=== PATIENT | male | born 1970 | race Caucasian/White ===

== ENCOUNTER 2020-07-26 00:18 | Outpatient (CLI) | payer OTHER, SELFPAY ==
[2020-07-26 20:45] LABS: SARS-CoV-2 RNA PCR Negative
== END 2020-07-26 00:19 | disposition home or self-care (01) ==
LOC: ANHCOVIDDT 00:18
PROVIDERS: PCP Family Medicine; Visit Provider Internal Medicine Gastroenterology
DX: Z01.818 Encounter for other preprocedural examination (principal); Z20.828 Contact with and (suspected) exposure to other viral communicable diseases
CPT/HCPCS: 87635; C9803; U0003

== ENCOUNTER 2020-07-29 00:46 | Day surgery (SDC) | payer OTHER, SELFPAY ==
[2020-07-21 11:26] VITALS: BMI 36.8
[2020-07-29 10:43] VITALS: BP 166/113; PULSE 79; RESP 17; TEMP 36.6; O2SAT 97; BMI 35.9
[2020-07-29] MEDS: LACTATED RINGERS 1,000 ML 150 ML IV CONT (10:58)
--- NOTE | 2020-07-29 11:38 | WPDANESEPPF ---
Anes - Initial Pre Proc Eval Procedure: Operation Date: 07/29/20 10:00 Proposed Procedures p Screening Colonoscopy - John Franklin MD Date/Time: 07/29/20 11:38 Surgeon: John Franklin MD Pre Op Diagnosis: Neoplasm Screening Patient Data Age: 49 Gender: M Height: 5 ft 8 in Weight: 107 kg Last Vital Signs Temp 97.9 F 07/29/20 10:43 Pulse 79 07/29/20 10:43 Resp 17 07/29/20 10:43 BP 166/113 H 07/29/20 10:43 Pulse Ox 97 07/29/20 10:43 Allergies Allergy/AdvReac Type Severity Reaction Status Date / Time Penicillins Allergy Intermediate Rash Verified 07/29/20 10:42 Home Medications Medication Instructions Recorded Confirmed Type No Home Medications 07/21/20 07/29/20 History Patient hx anesthesia problems: none Family hx anesthesia problems: none PMFSH Past Medical History Medical History (Updated 06/30/19 @ 10:32 by Harriett Barbosa MD) Family history of prostate cancer in father Prediabetes Recurrent herpes labialis Family History Family History (Updated 06/30/19 @ 10:03 by Anastasia Chahal) Father Malignant neoplasm of prostate Mother Family history of diabetes mellitus in first degree relative Grandparent Heart disease Social History Social History Smoking status: Never smoker Alcohol intake: current Drinks per week: 3 Alcohol use details: BEERS Substance use: never Substance use type: does not use Living arrangements: with family Spiritual care concerns: No Anes - Eval Final PreProcedure Day of Procedure 07/29/20 11:38 Patient weight: obese Heart: regular rate and rhythm Lungs: clear to auscultation Airway: Mallampati scale class II Neurological: alert and oriented Last oral intake: >/= 8 hours ASA classification: II Emergent: no Anesthetic plan: proceed Anesthesia type and monitoring: general GIVS and standard monitoring Informed Consent: The patient's anesthetic plan and its attendant risks and benefits were discussed with the patient/family/POA. Questions were solicited and answers provided to the satisfaction of the patient/family/POA.
--- NOTE | 2020-07-29 12:18 | WPDGICN ---
Assessment and Plan Assessment and plan (1) Encounter for screening colonoscopy: Code(s): Z12.11 - Encounter for screening for malignant neoplasm of colon Status: Acute Assessment and Plan: Patient presents today for screening colonoscopy because of age 49. He has appears to be at average risk for colon polyps. GI Consult Note Consult date/time: 07/29/20 12:18 HPI: Mickey Winters is a 49 year old male I am seen in the the absence of Dr Cuello today. patient presents for neoplasia screening. He has never had a colonoscopy previously. His current weight appetite bowel movements are normal. He has been in general good health. He denies weight loss or bleeding. Family history is noncontributory. Review of Systems Review of Systems: All systems reviewed & are unremarkable except as noted in HPI and below PMFSH Past Medical History Medical History (Updated 07/29/20 @ 12:20 by John Franklin MD) Family history of prostate cancer in father Prediabetes Recurrent herpes labialis Family History Family History (Updated 06/30/19 @ 10:03 by Anastasia Chahal) Father Malignant neoplasm of prostate Mother Family history of diabetes mellitus in first degree relative Grandparent Heart disease Social History Social History Smoking status: Never smoker Alcohol intake: current Drinks per week: 3 Alcohol use details: BEERS Substance use: never Substance use type: does not use Living arrangements: with family Spiritual care concerns: No Meds Home Medications and Allergies Home Medications Medication Instructions Recorded Confirmed Type No Home Medications 07/21/20 07/29/20 History Allergies Allergy/AdvReac Type Severity Reaction Status Date / Time Penicillins Allergy Intermediate Rash Verified 07/29/20 10:42 Vital Signs Vital Signs - 24 hr 07/29/20 10:43 Temperature 97.9 F Pulse Rate 79 Respiratory Rate 17 Blood Pressure 166/113 H Pulse Oximetry 97 Exam Narrative: Exam Narrative: Physical exam reveals patient to be alert. Vital signs stable. HEENT exam unremarkable. Lungs are clear to auscultation and percussion. Heart is without murmur or extra sounds. Abdominal exam bowel sounds are present soft nontender with no organomegaly. Digital external rectal exam normal.
[2020-07-29] MEDS: SIMETHICONE ORAL SUSPENSION 20 MG/0.3 ML 30 ML BOTTLE 0.6 ML IRRIGATION (13:29)
[2020-07-29 13:38] VITALS: BP 145/99; PULSE 87; RESP 17; O2SAT 94
[2020-07-29 13:48] VITALS: BP 132/93; PULSE 87; RESP 17; O2SAT 97
[2020-07-29 13:58] VITALS: BP 135/98; PULSE 85; RESP 17; O2SAT 96
== END 2020-07-29 14:08 | disposition home or self-care (01) ==
PROVIDERS: PCP Family Medicine; Visit Provider Internal Medicine Gastroenterology
PROC: 0DJD8ZZ Inspection of Lower Intestinal Tract, Via Natural or Artificial Opening Endoscopic (ICD-10-PCS; CPT 45378; principal; 2020-07-29 10:00)
DX: Z12.11 Encounter for screening for malignant neoplasm of colon (principal); K64.8 Other hemorrhoids; K57.30 Diverticulosis of large intestine without perforation or abscess without bleeding; E66.9 Obesity, unspecified; Z68.35 Body mass index [BMI] 35.0-35.9, adult
CPT/HCPCS: 45378; J2704; J7120

== ENCOUNTER 2023-03-05 09:18 | Outpatient (CLI) | payer BC, SELFPAY ==
--- NOTE | 2023-03-12 18:13 | WPDHOMESLEEP ---
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 He has a history of hypertension who has witnessed apneas. He had a home sleep test. He frequently awakens from sleep short of breath. He rarely at night with heartburn, belching or cough.??He always snores, always snores loudly enough that others complain. He occasionally has trouble sleeping when he has a cold. He rarely wakes up gasping for breath during the night. He frequently has breathing problems at night. He frequently sweats excessively at night. He occasionally notices his heart pounding or beating irregularly during the night. He frequently falls asleep during the day. He rarely falls asleep involuntarily and never falls asleep while driving. He never experiences loss of muscle tone with strong emotion. He neverfeels paralyzed on waking or falling asleep. He never experiences vivid dreams upon waking or falling asleep. He never feel afraid of going to sleep. He never has nightmares. He occasionally recalls his dreams. He never has thoughts racing through his mind. He never feels sad or depressed. He never feels anxiety or worry about things. He rarely notices parts of his body jerk. He rarely kicks during the night. He never feels crawling or aching feelings in his legs. He never feels leg pain at night. He frequently grinds his teeth and never has morning jaw pain. He never feels bothered by pain during the day and is never awakened by pain during the night. He never wakes up feeling stiff, sore, rarely wakes with pain in his neck, spine, or joints. Normal bedtime is around 9:30 p.m. usually falling asleep rather quickly. He typically gets about 8 hours of sleep per night. His wake up time is 5:30 a.m.. he wakes 3-4 times at night to go to the bathroom, turn around and is able to refer turn to sleep within minutes. On weekends bedtime is 10:30 p.m. and his wake time is 7:30 a.m.. He takes naps in the afternoon or evening. A short nap is not refreshing. He is drowsy for 3 hours or longer after waking. He feels better in the morning compared to other times of day Habits: ?Tobacco: never smoker Caffeine: 1 cup per day. Alcohol: none Recreational substances: none PMFSH Past Medical History Medical History Essential (primary) hypertension Family history of prostate cancer in father Prediabetes Recurrent herpes labialis Vitamin D deficiency Surgical History Surgical History History of knee surgery Family History Family History Father Malignant neoplasm of prostate Mother Family history of diabetes mellitus in first degree relative Grandparent Heart disease Social History Social History Smoking status: Never smoker Alcohol intake: current Drinks per week: 3 Alcohol use details: BEERS Substance use: never Substance use type: does not use Lack of Transportation: No Lack of Food: Never True Current Housing: I Have Housing Concerned About Future Housing: No Difficulty Paying Gas/Electric Bills: No Difficulty Paying for Meds: No Currently Unemployed: No Education: High School Diploma/GED Difficulty w/ Childcare or Family Care: No Living arrangements: with family Spiritual care concerns: No Medications Home Medications Medication Instructions Recorded Confirmed Type amlodipine 10 mg tablet 10 mg PO DAILY #90 tabs 07/03
[2023-03-14 18:16] VITALS: BMI 36.5
--- NOTE | 2023-04-04 11:40 | SLEEP ---
[id number] NEW CALLS UNDER TITRATION VISIT
== END 2023-03-06 12:38 | disposition home or self-care (01) ==
LOC: ANHCSM 09:19
PROVIDERS: PCP Family Medicine; Visit Provider Family Medicine
DX: G47.10 Hypersomnia, unspecified (principal); R40.0 Somnolence; G47.33 Obstructive sleep apnea (adult) (pediatric)
CPT/HCPCS: 95806

== ENCOUNTER 2023-03-28 09:53 | Outpatient (CLI) | payer BC, SELFPAY ==
--- NOTE | 2023-04-16 11:17 | WPDSLEEPSTUD ---
Sleep Study Date of Study: 03/28/23 Ordering Provider: Adolfo Barbosa MD Interpreting Physician: Rachell Rollins MD Sleep Study Type: CPAP Titration Height: 1.73 m Weight: 108.862 kg Body Mass Index: 36.5 Neck Circumference (inches): 17 [place]: 7 Reason for Sleep Study * 03/05/2023 Home Sleep Test using ApneaLink = severe obstructive sleep apnea, apnea-hypopnea index is 55.1 with Jermaine-Poe respirations noted for 30 minutes, 7% of the night, desaturation to 69% occurred and the patient spent 1 hour 54 minutes or 29% of the study below 88% saturation. He returns for a CPAP titration. Sleep History Mickey Winters is a 52-year-old man with obstructive sleep apnea diagnosed on a sleep study 03/05/2023. He returns for CPAP titration. 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 He had a home sleep test.? He? frequently awakens from sleep short of breath. He? rarely at night with heartburn, belching or cough.??He? always snores,? always snores loudly enough that others complain. He? occasionally has trouble sleeping when he has a cold. He? rarely wakes up gasping for breath during the night. He? frequently has breathing problems at night. He frequently sweats excessively at night. He? occasionally notices his heart pounding or beating irregularly during the night. He? frequently falls asleep during the day. He? rarely falls asleep involuntarily and? never falls asleep while driving. He? never experiences loss of muscle tone with strong emotion. He? neverfeels paralyzed on waking or falling asleep. He? never experiences vivid dreams upon waking or falling asleep. He? never feel afraid of going to sleep. He? never has nightmares. He? occasionally recalls his dreams. He? never has thoughts racing through his mind. He? never feels sad or depressed. He? never feels anxiety or worry about things. He? rarely notices parts of his body jerk. He? rarely kicks during the night. He? never feels crawling or aching feelings in his legs. He? never feels leg pain at night. He? frequently grinds his teeth and? never has morning jaw pain. He? never feels bothered by pain during the day and is never awakened by pain during the night. He? never wakes up feeling stiff, sore, rarely wakes with pain in his neck, spine, or joints. Normal bedtime is around ? 9:30 p.m. usually falling asleep? rather quickly. He typically gets about? 8 hours of sleep per night. His wake up time is? 5:30 a.m..? he wakes 3-4 times at night to go to the bathroom, turn around and is able to refer turn to sleep within minutes.? On weekends bedtime is 10:30 p.m. and his wake time is 7:30 a.m.. ? He takes naps in the afternoon or evening.? A short nap is not refreshing.? He is drowsy for 3 hours or longer after waking.? He feels better in the morning compared to other times of day Habits: ?Tobacco:? never smoker? Caffeine: 1 cup per day. ? Alcohol: none ? ? Recreational substances: none PMFSH Past Medical History Medical History Essential (primary) hypertension Family history of prostate cancer in father Prediabetes Recurrent herpes labialis Vitamin D deficiency Surgical History Surgical History History of knee surgery Family History Family History Father Malignant neoplasm of prostate Mother Family history of diabetes mellitus in first degree relative Grandparent Heart disease Social History Social History Smoking status: Never smoker Alcohol intake: current Drinks per week: 3 Alcohol use details: BEERS Substance use: never Substance use type: does not use Lack of Transportation: No Lack of Food: Never True Current Housing: I Have Housing Concerned About Future Housing: No Difficulty Paying Gas/Electric Bills: No Difficulty Pay
[2023-04-16 13:00] VITALS: BMI 36.5
== END 2023-03-29 05:57 | disposition home or self-care (01) ==
LOC: ANHCSM 09:55
PROVIDERS: PCP Family Medicine; Visit Provider Family Medicine
DX: G47.33 Obstructive sleep apnea (adult) (pediatric) (principal)
CPT/HCPCS: 95811